=== PATIENT | female | born 1985 | race Hispanic/Latino ===

== ENCOUNTER 2023-04-02 09:34 | Emergency (ER) | payer OTHER ==
[~2023-04-02] VITALS: Ht 160 cm; Wt 63.5 kg
[~2023-04-02 09:34] MED LIST: ACET1TAB12 PO; DOCU-116 PO; IBUP-2077 PO
[2023-04-02 09:40] VITALS: BP 150/99; PULSE 115; RESP 16; O2SAT 100
[2023-04-02] MEDS ORDERED: IBUPROFEN 600 MG TABLET PO ONE (10:30)
[2023-04-02] MEDS ORDERED: IBUP-2070 PO (11:36)
[2023-04-02] MEDS ORDERED: CYCL10TA16 PO (11:36)
== END 2023-04-02 11:42 | disposition home or self-care (01) ==
LOC: EDH 09:34
DX: M25.512 Pain in left shoulder (principal); R07.81 Pleurodynia; R07.89 Other chest pain; R10.2 Pelvic and perineal pain; R10.30 Lower abdominal pain, unspecified; V89.2XXA Person injured in unspecified motor-vehicle accident, traffic, initial encounter; Y93.89 Activity, other specified; Y92.89 Other specified places as the place of occurrence of the external cause; Y99.8 Other external cause status
CPT/HCPCS: 71045; 71100; 72040; 73000; 74176; 81025